=== PATIENT | male | born 1945 | race Caucasian/White ===

== ENCOUNTER 2022-06-30 14:55 | Emergency (ER) | payer MEDICARE, BC, SELFPAY ==
[2022-06-30 15:35] VITALS: BP 183/100; PULSE 76; RESP 18; TEMP 36.6; O2SAT 97; BMI 28.2
[2022-06-30 16:14] LABS: Appearance Urine Clear (Clear); Bilirubin Urine Negative (Negative); Blood Urine 2+ (Negative); Color Urine Yellow (Yellow); Glucose Urine Negative (Negative); Ketones Urine 1+ (Negative); Leukocyte Esterase Urine Negative (Negative); Nitrite Urine Negative (Negative); Protein Urine 2+ (Negative); Specific Gravity Urine 1.025 (1.000-1.030)
[2022-06-30 17:39] VITALS: BP 129/97; PULSE 89; O2SAT 95
--- NOTE | 2022-06-30 17:57 | CRLHL7_ITS ---
For Patients: As a result of the Century Cures Act, medical imaging exams and procedure reports are released immediately into your electronic medical record. You may view this report before your referring provider. If you have questions, please contact your health care provider. INDICATION: Abdominal pain. TECHNIQUE: CT abdomen and pelvis without contrast. COMPARISON: None. FINDINGS: Limited evaluation of the intra-abdominal solid organs without IV contrast. Lower chest: Mild bibasilar atelectasis. Liver: Normal in size and attenuation. No suspicious masses. Gallbladder and bile ducts: No stones or inflammation. No biliary dilatation. Pancreas: Unremarkable. No mass or inflammation. Spleen: Normal in size. No masses. Adrenal glands: Normal in size. No nodules. Kidneys: Punctate stone (2 millimeters) is identified at the distal left ureter (2/130), with proximal mild hydroureteronephrosis. There is stranding surrounding the left kidney likely related to hydronephrosis and obstruction. The right kidney is within normal limits. GI tract: Unremarkable. Normal in caliber. No sign of mass or inflammation. Normal appendix. Vasculature: Abdominal aorta is normal in caliber. Lymph nodes: No lymphadenopathy. Peritoneum/Abdominal Wall: Unremarkable. No sign of mass or infiltration. No free air or significant free fluid. Pelvis: Mild prostatomegaly. Bladder is within normal limits. Bones: Unremarkable for age. IMPRESSION: Obstructing punctate left distal ureteral stone with proximal mild hydroureteronephrosis. Please note that all CT scans at this facility use dose modulation, iterative reconstruction, and/or weight-based dosing when appropriate to reduce radiation dose to as low as reasonably achievable. Dictated by Saul Wang MD @ 06/30/2022 6:54:34 PM (Electronically Signed)
[2022-06-30 18:35] LABS: Basophils Percent Auto 0.2 % (0.0-3.0); Hematocrit 46.9 % (37.0-53.0); Hemoglobin* 15.6 gm/dL (13.5-17.5); Immature Granulocytes Abs Auto 0.02 K/uL (0.00-0.30); Lymphocytes Percent Auto 7.2 % (20-44); Mean Corpuscular HGB Conc 33 gm/dL (32-36); Mean Corpuscular Hemoglobin 29 pg (26-34); Mean Corpuscular Volume 86 fL (80-100); Monocytes Percent Auto 6.6 % (0.0-11.0); Neutrophils Percent Auto 85.8 % (42.0-72.0); Platelet Count* 255 K/uL (140-440); RDW Coefficient of Variation % 13.1 % (11.5-15.5); Red Blood Count 5.43 m/uL (4.30-5.90)
[2022-06-30 18:40] LABS: Slide Review Reflex No
--- NOTE | 2022-06-30 18:44 | ED.ABDPAIN ---
HPI - Abdominal Pain General Date Seen: 06/30/22 Chief Complaint: Abdominal Pain Stated Complaint: Abdominal pain, brown urine Time Seen by Provider: 06/30/22 17:47 Source: patient Mode of arrival: ambulatory Limitations: no limitations History of Present Illness HPI narrative: Patient is a very nice 71 for old gentleman who has a history of prostate cancer he presents here with abdominal pain on the left side of his abdomen, radiation from his flank to his left groin, he has also had some dark urination with this. He has been for the last 3-4 days, took some Excedrin, for this and felt a little bit better. Some nausea but no vomiting, no diarrhea, and appetites been a little bit off, he has had no fevers chills or sweats, denies any chest pain shortness of breath, falls or injury presents here with his . For evaluation. Related Data Home Medications Medication Instructions Recorded Confirmed levothyroxine 125 mcg tablet 125 mcg PO DAILY 06/30/22 06/30/22 Allergies Allergy/AdvReac Type Severity Reaction Status Date / Time No Known Drug Allergies Allergy Verified 06/30/22 15:45 Review of Systems Status of ROS Reports: 10 or more systems reviewed and unremarkable except as noted in History and below PFSH [facility] Social History Smoking Status: Never smoker How often do you have a drink containing alcohol: never AUDIT-C Alcohol total score: 0 Non-prescribed substance use: denies use Exam Narrative: Exam Narrative: Patient is in stayed 2 in no apparent distress his pupils equal round react to light there is no scleral icterus redness is TMs are normal his oropharynx normal there is no adenopathy anterior posterior chains his neck is supple full range of motion, carotid upstrokes are equal bilaterally JVP is flat, chest is clear bilaterally with no wheezing crackles noted heart sounds no clicks murmurs or gallops, abdominal exam reveals the some mild left-sided tenderness more in the lower quadrants, some mild CVA tenderness on the left side also, no hernias are noted normal male genitalia circumcised male, no organomegaly. Extremities are all normal, with no swelling pitting edema, no rashes, neurologically intact in the upper lower extremities. Const: Vital Signs, click to edit/add: Vital Signs - 24 hr 06/30/22 15:35 06/30/22 17:39 06/30/22 19:01 Temperature 97.8 F Pulse Rate [Right Pulse Oximeter] 76 89 77 Respiratory Rate 18 Blood Pressure [Ri ght Upper Arm] 183/100 H 129/97 H 132/90 H Pulse Oximetry 97 95 98 Oxygen Delivery Me thod Room Air Room Air Course Vital Signs Vital signs: Initial Vital Signs Temperature 97.8 F 06/30/22 15:35 Temperature Source Temporal Artery Scan 06/30/22 15:35 Pulse Rate 76 06/30/22 15:35 Respiratory Rate 18 06/30/22 15:35 Blood Pressure 183/100 H 06/30/22 15:35 Blood Pressure Mean 127 06/30/22 15:35 Blood Pressure Position Sitting 06/30/22 15:35 Pulse Oximetry 97 06/30/22 15:35 Oxygen Delivery Method 06/30/22 15:35 Vital Signs Temperature 97.8 F 06/30/22 15:35 Pulse Rate 76 06/30/22 15:35 Respiratory Rate 18 06/30/22 15:35 Blood Pressure 183/100 H 06/30/22 15:35 Pulse Oximetry 97 06/30/22 15:35 Oxygen Delivery Method 06/30/22 15:35 Temperature 97.8 F 06/30/22 15:35 Pulse Rate 77 06/30/22 19:01 Respiratory Rate 18 06/30/22 15:35 Blood Pressure 132/90 H 06/30/22 19:01 Pulse Oximetry 98 06/30/22 19:01 Oxygen Delivery Method 06/30/22 19:01 MDM - Abdominal Pain MDM Narrative Medical decision making narrative: During this evaluation of this patient I considered multiple differential diagnosis is which included the life-threatening such as appendicitis, aortic aneurysm, mesenteric ischemia, bowel perforation, volvulus, and bowel obstruction. Other differential diagnosis is include but are not limited to cholecystitis, pancreatitis, hepatitis, gastritis, GERD, diverticulitis, peptic ulcer disease, pyelonephritis/UTI, renal colic/stone, testicular torsion as well as other acute scrotal processes, inflammatory bowel disease, as well as other etiologies Medical Records Attestation: I reviewed the patient's medical records. Lab Data Attestation: I reviewed the patient's lab results. Labs: Lab Results 06/30/22 06/30/22 06/30/22 Range/Units 15:50 18:06 18:06 WBC 11.20 H (4.50-11.00) K/uL RBC 5.43 (4.30-5.90) m/uL Hgb 15.6 (13.5-17.5) gm/dL Hct 46.9 (37.0-53.0) % MCV 86 (80-100) fL MCH 29 (26-34) pg MCHC 33 (32-36) gm/dL RDW Coeff of Zeus 13.1 (11.5-15.5) % Plt Count 255 (140-440) K/uL Neut % (Auto) 85.8 H (42.0-72.0) % Lymph % (Auto) 7.2 L (20-44) % Harrison % (Auto) 6.6 (0.0-11.0) % Eos % (Auto) 0.0 (0.0-7.0) % Baso % (Auto) 0.2 (0.0-3.0) % Neut # (Auto) 9.60 H (1.7-7.0) K/uL Lymph # (Auto) 0.80 L (0.90-2.90) K/uL Harrison # (Auto) 0.70 (0.00-0.90) K/UL Eos # (Auto) 0.00 (0.00-0.50) K/uL Baso # (Auto) 0.00 (0.00-0.30) K/uL Abs Immat Gran (auto) 0.02 (0.00-0.30) K/uL Sodium 134 L (135-149) mmol/L Potassium 4.5 (3.6-5.1) mmol/L Chloride 101 (96-114) mmol/L Carbon Dioxide 24 (20-32) mmol/L BUN 22 (7-30) mg/dL Creatinine 1.6 H (0.5-1.5) mg/dL Estimated Creat Clear 46.38 Estimated GFR 45 ml/min Glucose 137 H (60-115) mg/dL Calcium 8.8 (8.4-10.6) mg/dL Total Bilirubin 0.7 (0.1-1.5) mg/dL Direct Bilirubin 0.1 (0.0-0.5) mg/dL AST 33 (12-35) U/L ALT 26 (4-50) U/L Alkaline Phosphatase 69 (40-150) U/L C-Reactive Protein 2.5 H (0.5-1.0) mg/dL Total Protein 7.5 (6.0-8.3) g/dL Albumin 4.6 (3.3-5.0) g/dL Lipase 60 (23-300) U/L Urine Color Yellow (Yellow) Urine Appearance Clear (Clear) Urine pH 6.0 (5.0-8.5) Ur Specific Mittie 1.025 (1.000-1.030) Urine Protein 2+ A (Negative) Urine Glucose (UA) Negative (Negative) Urine Ketones 1+ A (Negative) Urine Blood 2+ A (Negative) Urine Nitrite Negative (Negative) Urine Bilirubin Negative (Negative) Urine Urobilinogen 1.0 (0.2-1.0) Ur Leukocyte Esterase Negative (Negative) Urine RBC 2-5 A (0-2) Urine WBC 2-5 (0-5) Ur Squamous Epith Cells None (None-Few) Urine Bacteria None (None) Imaging Data CT scan - abdomen: Attestation: I have reviewed the pertinent imaging results. My impression: Small stone with mild hydronephrosis on the left side. This stone is at the distal UVJ. Radiologist's impression: Patient: TAYLOR SAMEER Facility:?[facility] Patient ID:?[id number] Site Patient ID:?[id number]. Site :?1945 Study:?CT Abdomen/Pelvis W/O-06/30/2022 6:35:16 PM Ordering Physician:Jensen Harrison Final Report: INDICATION: Abdominal pain. TECHNIQUE: CT abdomen and pelvis without contrast. COMPARISON: None. FINDINGS: Limited evaluation of the intra-abdominal solid organs without IV contrast. Lower chest: Mild bibasilar atelectasis. Liver: Normal in size and attenuation. No suspicious masses. Gallbladder and bile ducts: No stones or inflammation. No biliary dilatation. Pancreas: Unremarkable. No mass or inflammation. Spleen: Normal in size. No masses. Adrenal glands: Normal in size. No nodules. Kidneys: Punctate stone (2 millimeters) is identified at the distal left ureter (2/130), with proximal mild hydroureteronephrosis. There is stranding surrounding the left kidney likely related to hydronephrosis and obstruction. The right kidney is within normal limits. GI tract: Unremarkable. Normal in caliber. No sign of mass or inflammation. Normal appendix. Vasculature: Abdominal aorta is normal in caliber. Lymph nodes: No lymphadenopathy. Peritoneum/Abdominal Wall: Unremarkable. No sign of mass or infiltration. No free air or significant free fluid. Pelvis: Mild prostatomegaly. Bladder is within normal limits. Bones: Unremarkable for age. IMPRESSION: Obstructing punctate left distal ureteral stone with proximal mild hydroureteronephrosis. Please note that all CT scans at this facility use dose modulation, iterative reconstruction, and/or weight-based dosing when appropriate to reduce radiation dose to as low as reasonably achievable. Dictated by Saul Wang MD @ 06/30/2022 6:54:34 PM (Electronic Signature) Discharge Plan Discharge Clinical Impression: Urolithiasis Patient Disposition: Home w/ Parent or Adult Condition: Improved Instructions: Renal Colic (ED) Additional Instructions: Home rest use of Tylenol 650 mg p.o. t.i.d., return here if increasing pain nausea vomiting fevers chills or other signs, the kidney stone is small and you should pass this with no problems at all. Avoidance of ibuprofen, Aleve or lows going to medications is strongly suggested given your history of chronic kidney disease. Prescriptions: No Action levothyroxine 125 mcg tablet 125 mcg PO DAILY Follow Up/Referrals: ROB RAMOS DO [Primary Care Provider] - Stand Alone Forms: [employer] Info Instructions
--- OUTSIDE RECORDS SUMMARY | 2022-06-30 18:48 | XMS_ITS ---
:1945 Author Care Team Providers Name Role Phone HenryErnst Primary Care Provider Unavailable Allergies Code Code System Name Reaction Severity Status Onset NKDA ? Medications Name Status Start Date Stop Date ? ? amoxicillin 500 mg capsule Completed ? 08/14 ceftriaxone 1 gram solution for injection Completed ? 08/14/2021 Take 1 g by injection route. ROSS Sky Cipro 500 mg tablet Completed ? 08/14/2021 Take 1 tablet every 12 hours by oral route for 4 days. start the day before procedure doxycycline monohydrate 100 mg capsule Completed ? 08/14/2021 ID NOW COVID-19 Test Kit Completed ? 021 TEST DIRECTED TODAY levothyroxine 125 mcg tablet Active ? Not available Multi Vitamin Active ? Not available mupirocin 2 % topical ointment Completed ? 1 APPLY TO HEALING SITE ON ARM 1-2X DAILY UNTIL IMPROVED tamsulosin 0.4 mg capsule Completed ? 2020 Problems No Known Problems Procedures Date Name Performed by ? 12/25/2016 Colonoscopy Information not avai lable Notes: pt estimated date ? Thyroidectomy Information not avai lable 07/31/2021 MRI, Prostate, W/wo Contrast [facility] (Radiology) [address] [place], [place] [address] (Work Place) 06/23/2022 MRI, Prostate, W/wo Contrast [facility] [address] [place] [address] (Work Place) Results Lab Results Date Name Specimen Result Interpretation Description Value Range Status Address ? 06/24/2022 PSA, Serum or ? No observation ? ? ? Plasma recorded. 02/25/2022 PSA, Total, ? No observation ? ? ? Serum or recorded. Plasma 01/17/2022 PSA, Total, ? No observation ? ? ? [employer] Serum or recorded. Labor atory: [address], [place] 12/25/2021 PSA, Serum or ? PSA, Total 7.8 ? ? Plasma ng/ml 12/25/2021 PSA, Serum or ? No observation ? ? ? Plasma recorded. Past Encounters 06/23/2022 Carcinoma of Prostate; Ryan Reid MD: [address], [place] [address], Ph. 12/25/2021 Carcinoma of Prostate; Ryan Reid MD: [address], [place] [address], Ph. 08/14/2021 Carcinoma of Prostate; Ryan Reid MD: [address], [place] [address], Ph. 07/24/2021 Raised Prostate Specific Antigen; Doc Reid MD: [address], [place] [address], Ph. Social History Tobacco Smoking Status Never Smoker Vaccine List Vaccine Type COVID-19, mRNA, LNP-S, PF, 100 mcg/0.5 m L dose (Moderna) 11/02/2020 11/30/2020 08/01/2021 Hep A-Hep B 07/09/2011 02/23/2012 Influenza vaccine, quadrivalent, adjuvan rafaela 06/05/2020 06/24/2021 influenza, high dose seasonal 08/21/2014 06/19/2016 influenza, seasonal, injectable 06/21/2007 08/23/2008 08/08/2013 influenza, seasonal, injectable, preserv ative free 07/09/2011 influenza, trivalent, adjuvanted 09/08/2017 07/13/2018 06/28/2019 pneumococcal conjugate PCV 13 08/21/2014 pneumococcal polysaccharide PPV23 02/23/2012 Td (adult) preservative free 06/21/2007 Tdap 07/09/2011 zoster recombinant 06/23/2020 08/31/2020 Plan of Care Reminders Provider Appointments None recorded. ? ? Lab None recorded. ? ? Referral None recorded. ? ? Procedures None recorded. ? ? Surgeries None recorded. ? ? Imaging None recorded. ? ? Vitals 06/23/2022 09:50AM ESTABLISHED 10 Height Weight BMI 6 ft 3 in 220 lbs 27.5 kg/m2 12/25/2021 03:20PM ESTABLISHED 10 Height Weight BMI 6 ft 3 in 220 lbs 27.5 kg/m2 08/14/2021 04:00PM CA TALK Height Weight BMI 6 ft 3 in 220 lbs 27.5 kg/m2
--- OUTSIDE RECORDS SUMMARY | 2022-06-30 18:48 | XMS_ITS | Encounter Summary ---
:1945 Author Organization [facility] Address [address] [place] [address] Care Team Providers Name Role Phone Vivien Knox Primary Care Provider Unavailable Encounter Details Date Type Department Care Team Description 03/14/2022 Office Communication [facility] [place] [address] [facility] [address] [place] [phone] Social History Tobacco Use Types Packs/Day Years Used Date Smoking Tobacco: Never Smokeless Tobacco: Never Alcohol Use Standard Drinks/Week Comments Yes 0 (1 standard drink = 0.6 oz pure alcoho l) rarely Alcohol Habits Answer Date Recorded How often do you have a drink containing alcohol? Not asked How many drinks containing alcohol do you have on a typical Not asked day when you are drinking? How often do you have six or more drinks on one occasion? No t asked Comment: rarely 01/15/2022 Sex Assigned at Date Recorded Not on file documented as of this encounter Miscellaneous Notes Telephone Encounter - Lucrecia Contreras - 03/14/2022 10:10 AM CDT Patient showed up on 03/14/2022. He was already seen as new patient on 01/15/2022. Advised he does not have to be seen until next year and changed recall to F/U. Lucrecia Contreras documented in this encounter Plan of Treatment Not on filedocumented as of this encounter Visit Diagnoses Not on filedocumented in this encounter Care Teams Scrubber Machine Tender Relationship Specialty Start Date End Date Vivien Knox DO PCP - General Family Medicine 01/08/22 [address] [place] [address] documented as of this encounter
--- OUTSIDE RECORDS SUMMARY | 2022-06-30 18:48 | XMS_ITS | Encounter Summary ---
:1945 Author Organization [facility] Address [address] [place] [address] Care Team Providers Name Role Phone Vivien Knox Primary Care Provider Unavailable Encounter Details Date Type Department Care Team Description 01/22/2022 Orders Only [facility] Lutz MD Stage 3a chronic [place] [address] kidney disease (HCC) [address] [place] [phone] Social History Tobacco Use Types Packs/Day Years [...] Assigned at Date Recorded Not on file COVID-19 Exposure Response Date Recorded In the last month, have you been in contact with No / Unsure 01/15/2022 12:58 PM EDT someone who was confirmed or suspected to have Coronavirus / COVID-19? documented as of this encounter Progress Notes Harsh Lutz MD - 01/22/2022 11:59 PM CDT Please call the patient regarding U/S. Normal, no concerns JPG documented in this encounter Plan of Treatment Not on filedocumented as of this encounter Procedures Procedure Name Priority Date/Time Associated Diagnosis Comme nts US RENAL COMPLETE Routine 01/31/2022 10:16 AM Stage 3a chronic Results for this CDT kidney disease (HCC) procedu re are in the results section. documented in this encounter Results Ultrasound renal complete (01/31/2022 10:16 AM CDT) Anatomical Region Laterality Modality Body Ultrasound Narrative This result has an attachment that is no t available. Harsh Lutz MD IMG US PROCEDURES documented in this encounter Visit Diagnoses Diagnosis Stage 3a chronic kidney disease (HCC) documented in this encounter Care Teams Business Process Engineer Relationship Specialty Start Date End Date Vivien Knox DO PCP - General Family Medicine 01/08/22 [address] [place] [address] documented as of this encounter
--- OUTSIDE RECORDS SUMMARY | 2022-06-30 18:48 | XMS_ITS | Encounter Summary ---
:1945 Author Organization [facility] Address [address] [place] [address] Care Team Providers Name Role Phone Vivien Knox DO Primary Care Provider Unavailable Reason for Referral Imaging (Routine) - Closed Specialty Diagnoses / Procedures Referred By Contact Refer red To Contact Diagnoses Stage 3a chronic kidney disease (HCC) Harsh Lutz MD Location Not In System Procedures Ultrasound renal complete [address] [place] [address] Referral ID Status Reason Start Date Expiration Date Visits Requ ested Visits Authorized [id number] Closed 01/15/2022 01/15/2023 1 1 Reason for Visit Reason Comments CKD New Patient Consultation (Routine) - Closed Specialty Diagnoses / Procedures Referred By Contact Refer red To Contact Nephrology Diagnoses Stage 3a chronic kidney disease (HCC) Vivien Knox DO [facility] [address] [place] [address] [address] [place] [address] Phone: Fax: Referral ID Status Reason Start Date Expiration Date Visits V isits Requested Authorized [id number] Closed Consult and 01/02/2022 01/02/2023 1 1 Treat Encounter Details Date Type Department Care Team Description 01/15/2022 [facility] Visit [facility] MD Stage 3a chronic [place] [address] kidney disease (HCC) [address] (Primary Dx) [address] [place] [id number] Social History Tobacco Use Types Packs/Day Years [...] / COVID-19? documented as of this encounter Last Filed Vital Signs Vital Sign Reading Time Taken Comments Blood Pressure 122/78 01/15/2022 1:20 PM CDT Pulse 83 01/15/2022 1:20 PM CDT Temperature - - Respiratory Rate - - Oxygen Saturation - - Inhaled Oxygen Concentration - - Weight 102 kg (224 lb) 01/15/2022 1:20 PM CDT Height 189.2 cm (6' 2.5) 01/15/2022 1:20 PM CDT Body Mass Index 28.38 01/15/2022 1:20 PM CDT documented in this encounter Patient Instructions Patient InstructionsKayli Lewis - 01/15/2022 1:52 PM CDT Renal U/S at [facility] or [facility]. We will contact you with a date, time and location for this. Fasting labs and urine at [facility] this week or next week. Orders will be faxed. No new meds. Follow up in 1 year, with labs done 1 week prior. We will contact you to schedule this visit. Welcome to [facility] Although we are experts in the care of patients with chronic kidney disease, we understand that you are the expert regarding your own life. Our goal is to work with you in providing the best possible care and to meet your individual needs. The six important things that we check to ensure that you are staying healthy: ? Blood Pressure: Our goal is to keep your blood pressure 130/80 or lower. ? Heart and blood vessels: We want your LDL (bad cholesterol) to be below 100. If you smoke, it is important to quit. ? Anemia: We want your hemoglobin to be around 10 to 12. ? Bones: We want the calcium to be between 8.5 and 10, the phosphorous to be between 3.5 and 4.5. ? We want you to maintain good nutrition to keep your body healthy. The renal nuclear fuel enrichment technician is available to help you with this. ? If you have diabetes, we want to keep your hemoglobin A1c at 7.0 or lower and your blood sugar 80 to 130. Additionally, do not take any zgoj-kfc-kdkbgrg medications or prescribed medication without asking if it can hurt your kidneys. Avoid Motrin, Aleve, ibuprofen, or naprosyn arthritis nmbb-azm-dqflnhj medications. Avoid cold medications that include ephedrine, phenylpropolamine or pseudoephedrine (Suda fed, Actifed). If your doctor wants you to have a CT scan or MRI with IV contrast, be sure to let them know that you see a continuing education director for your kidney disease. Ask that they contact your continuing education director before this type of test is scheduled. When to call for your kidneys if you get sick: ? If you get dehydrated (you may need to come in for fluids and stop some medications) ? If you cannot pass your urine completely (empty your bladder) Our doctors, nurses, and dieticians are eager to help you in any way that we can. We want you to feel free to call us or make an appointment anytime you have questions or concerns. To call the nurse [facility] continuing education director's office, please see the addresses and telephone numbers listed on the left. Thank you, The Physicians and staff at [facility] UNDERSTANDING YOUR BLOOD PRESSURE & LAB RESULTS People who develop chronic kidney disease may have some or all of the following tests. This sheet isto help you understand the results: Blood Pressure: Achieving the blood pressure goals identified by your kidney doctor is very important in slowing the progression of your kidney disease. Always take blood pressure medications as directed. Other steps to follow may include cutting down on the amount of salt in your diet, losing excess weight and following a regular exercise program. Serum Creatinine: Creatinine is a waste product in your blood that comes from muscle activity. It isnormally removed from your blood by your kidneys, but when kidney function slows down, the creatinine level rises. (Lab Normal Range: Male: 0.5--1.3, Female: 0.4--1.1) BUN (Blood Urea Nitrogen): BUN is a waste product in your blood that is normally removed from your body by the kidneys. When your kidney function slows down or if you become dehydrated, the BUN levels rise. (Lab Normal Range: 7--24) Glomerular Filtration Rate (GFR): Your GFR tells how much kidney function you have. It is calculatedfrom your blood level of creatinine. (Lab Normal Range: Equal to or greater than 60) Potassium: Potassium is a mineral in your blood that helps your heart and muscles work properly, toomuch or too little potassium can be harmful to your heart and other muscles in your body. Potassium levels can be controlled by careful dietary restrictions. Our dietitian can help plan your diet to get the right amount of potassium. (Lab Normal Range: 3.5--5.1) Phosphorus: Failing kidneys do not remove phosphorus efficiently. A high phosphorus level can lead to weak bones. If your level is too high, your kidney doctor may ask you to reduce your intake of foods that are high in phosphorus and take medications called phosphate binders with your meals and snacks. (Lab Normal Range: 2.5--4.9) Calcium: Calcium is a mineral that is important for strong bones. To help balance the amount of calcium in your blood, your kidney doctor may ask you to take calcium supplements and Vitamin D. Take only the supplements and medications recommended by your kidney doctor. (Lab Normal Range: 8.5--10.1) Page 2 of 2 Parathyroid Hormone (PTH): This hormone is a marker for your bone health. High levels may result from a poor balance of calcium and phosphorus in your body that can cause bone disease. Your kidney doctor may order a special prescription form of Vitamin D to help lower your PTH. (Lab Normal Range: 14--72) Hemoglobin: Hemoglobin is the part of red blood cells that carries oxygen from your lungs to all parts of your body. A low hemoglobin level indicates too few red blood cells, which is called anemia. Anemia can make you feel tired or have a low energy level. If you have anemia, you may need treatment with iron supplements and a hormone called erythropoietin (EPO). Your hemoglobin is monitored carefully to ensure the correct doses of iron and EPO is prescribed. (Lab Normal Range: Males: 14-18, Females: 12-16) TSAT and Serum Ferritin: Your TSAT (% iron saturation) and serum ferritin are measures of iron in your body. Abnormal values may indicate iron deficiency. Your kidney doctor may recommend iron supplements when needed. (Lab Normal Range: TSAT: 15--50; Serum Ferritin: 8--388) Cholesterol tests: Patients with kidney disease have an increased risk for cardiovascular disease (heart disease), therefore it is important that your cholesterol is well controlled. Dietary changes, exercise, and cholesterol lowering medication can lower cholesterol levels and decrease cardiovascular risk. Total Cholesterol: Cholesterol is a fat-like substance found in your blood. A high cholesterol levelmay increase your chance of having heart and circulation problems. For many patients, the target level is less than 200. HDL Cholesterol: HDL is a type of 'good' cholesterol that protects your heart. For many patients, the target level for HDL is above 40. LDL Cholesterol: LDL is a type of 'bad' cholesterol. A high LDL level may increase your chance of having heart and circulation problems. For many patients, a good level for LDL cholesterol is below 100, but some patients may have an even lower goal. Triglyceride: Triglyceride is a type of fat found in your body. A high triglyceride level along withhigh levels of total and LDL cholesterol may increase your chance of heart and circulation problems.For many patients, the target level is less than 150. HgbA1c: The HgbA1c is a marker of diabetes control for the past two to three months. Adequate diabetes control has been proven to slow the progression of kidney failure. (Lab Normal Range: Less than or equal to 5.6 if average glucose is less than or equal to 114.) documented in this encounter Progress Notes Harsh Lutz MD - 01/15/2022 1:20 PM CDT Images from the original note were not included. Patient: Elizabeth Brewster Date of : 1945, 76 y.o. male Chart: [id number] PCP: Vivien Knox DO Date of Service: 01/15/2022 Chief Complaint: I was asked by Vivien Knox to evaluate Elizabeth Brewster for CKD. History of Present Illness: Jamison is a pleasant 76-year-old male who was kindly sent to me by Dr. Lopes for evaluation of abnormal creatinine. He had a creatinine of 1.41 on June 22, 2020 and most recently 1.42 on 12/09/2021. He had a urinalysis 04/20/2020 that was bland and without any protein or white blood cells or red blood cells. He has not had any renal imaging, yet. He denies ever having kidney stones. No history of urinary tract infections or BPH symptoms althoughhe recently was placed on Flomax due to his history of prostate cancer although he has not started taking this. He has stable nocturia 1 time per night. There is no family history of CKD. He does not use lgkl-lmd-yvyfsan nonsteroidal anti-inflammatory drugs. He denies hypertension and his blood pressure today is 122/78. He was diagnosed with prostate cancer in July 2021 and is followed by Dr. Reid. Currently theyare observing his PSA and no plans for treatment. Today he feels well and has no current illnesses. Assessment & Plan 1. Stage IIIa chronic kidney disease. We will be performing a full work-up to include renal ultrasound, urinalysis, urine protein creatinine evaluation. His GFR has essentially been unchanged for the last 18 months. He is a large/tall male with increased muscle so his true GFR may be better than the estimated GFR. Long-term goals include blood pressure control to less than 130/80, LDL less than 100, avoidance of chronic NSAIDs. He should have at least annual urinalysis basic metabolic panel. 2. Cardiovascular. Current normal blood pressure on no medications. I encouraged him to follow a low-sodium diet, purchase an Omron blood pressure cuff and check his blood pressures routinely and call if the goal above our goal of 130s over 80s. 3. Bone health. Check intact PTH 25-hydroxy vitamin D calcium and phosphorus since he does have stage III chronic kidney disease. 4. Lipid status. I have ordered a fasting lipid panel and he should be considered for statin therapyif he is above the target. Defer to his primary care physician. Return in about 1 year (around 01/15/2023) for Recheck. Harsh Lutz MD [facility], Active Problems Patient Active Problem List Diagnosis Date Noted ??? Mixed hyperlipidemia 02/23/2012 Review of Systems Comprehensive ROS was negative other than above and in HPI. Physical Exam Vitals: 01/15/22 1320 BP: 122/78 BP Location: Left upper arm Pulse: 83 Weight: 224 lb (102 kg) Height: 6' 2.5 (1.892 m) CONSTITUTIONAL: calm and comfortable. NAD EYES: pupils equal, sclerae not icteric, lids and conjunctivae normal. MOUTH: Oropharynx has moist mucus membranes, good dentition, no lesions. HEMATOLOGIC/LYMPHATIC: No cervical or axillary lymphadenopathy. no bruising. RESPIRATORY: Clear to auscultation bilaterally with no respiratory distress, normal effort. CARDIOVASCULAR: Regular rate and rhythm, no murmurs. no leg edema.. no carotid or abdominal bruits. GASTROINTESTINAL: Bowel sounds +, no masses or hepatosplenomegaly. Soft, nontender, no guarding. PSYCHIATRIC: Alert and oriented x 3, not depressed. NEUROLOGIC: Cranial nerves II-XII intact, sensation to light touch intact. MUSCULOSKELETAL: Four extremities with good range of motion, no contractures. SKIN: No rash or nodules. Outpatient Medications Marked as Taking for the 01/15/22 encounter (Office Visit) with Harsh Lutz MD Medication Sig Dispense Refill ??? ascorbic acid (VITAMIN C) 1000 MG tablet Take 1 tablet by mouth 1 (one) time each day ??? cholecalciferol (VITAMIN D-3) 25 MCG (1000 UT) capsule Take 1 capsule by mouth 1 (one) time eachday ??? coenzyme Q-10 100 MG capsule Take 1 capsule by mouth 1 (one) time each day ??? fish oil-omega-3 fatty acids 1000 MG capsule Take 1 capsule by mouth in the morning and 1 capsule in the evening. ??? levothyroxine (SYNTHROID, LEVOTHROID) 125 MCG tablet Take 1 tablet by mouth 1 (one) time each day ??? Melatonin 5 MG chewable tablet Chew 1 tablet if needed ??? Multiple Vitamin (MULTIVITAMIN ADULT PO) Take 1 tablet by mouth 1 (one) time each day with food ??? Probiotic Product (PROBIOTIC BLEND PO) Take 1 capsule by mouth 1 (one) time each day ??? Red Yeast Rice Extract 600 MG tablet Take 2 tablets by mouth 1 (one) time each day ??? Saw [place] 450 MG capsule Take 1 capsule by mouth 1 (one) time each day ??? sildenafil (VIAGRA) 50 MG tablet Take 50 mg by mouth if needed ??? Turmeric 500 MG tablet Take 1 capsule by mouth 1 (one) time each day Medication orders: No orders of the defined types were placed in this encounter. Orders Placed This Encounter Procedures ??? Ultrasound renal complete Standing Status: Future Standing Expiration Date: 01/15/2023 Scheduling Instructions: At either [facility] or [facility] ??? Basic Metabolic Panel (BMP) This order was created through External Result Entry ??? Urinalysis This order was created through External Result Entry ??? Basic Metabolic Panel (BMP) This order was created through External Result Entry ??? Basic Metabolic Panel (BMP) This order was created through External Result Entry ??? Renal Function Panel Fasting labs at [facility] Standing Status: Future Standing Expiration Date: 02/15/2023 Order Specific Question: [facility] Has the patient fasted? Answer: No ??? Hemoglobin Fasting labs at [facility] Standing Status: Future Standing Expiration Date: 02/15/2023 ??? PTH, Intact Fasting labs at [facility] Standing Status: Future Standing Expiration Date: 02/15/2023 ??? Protein, Total, Random Urine w/Creatinine (Protein/Creat Ratio) Fasting labs at [facility] Standing Status: Future Standing Expiration Date: 02/15/2023 ??? Urinalysis with microscopic Fasting labs at [facility] Standing Status: Future Standing Expiration Date: 02/15/2023 Order Specific Question: Microscopic Required Answer: No Order Specific Question: Culture if Indicated? Answer: No ??? Vitamin D 25 Hydroxy Fasting labs at [facility] Standing Status: Future Standing Expiration Date: 02/15/2023 ??? Lipid panel Fasting labs at [facility] Standing Status: Future Standing Expiration Date: 02/15/2023 Order Specific Question: Fasting? Answer: Yes ??? CBC (Includes Diff/Plt) (External Lab) This order was created through External Result Entry No Known Allergies CBC and Iron Studies Lab Units 12/09/21 0000 WBC AUTO K/uL 5.2 HEMATOCRIT % 48.9 HEMOGLOBIN g/dL 16.4 MCV 87 PLATELETS AUTO 223 Urine Lab Units 04/20/20 0000 URINE SPECIFIC GRAVITY 1.025 GLUCOSE UR Negative BLOOD, URINE Negative LEUKOCYTE ESTERASE UA (EXTERNAL LAB ENTRY) Negative NITRITE U Negative PROTEIN UR Negative BILIRUBIN U Negative UROBILINOGEN U Normal I have performed a complete review of pertinent lab results 01/15/2022 The following portions of the patient's chart were reviewed in this encounter and updated as appropriate: Tobacco Allergies Meds Med Hx Surg Hx Fam Hx Past Medical History: Diagnosis Date ??? Other malignant neoplasm of unspecified site (HCC) Past Surgical History: Procedure Laterality Date ??? THYROID SURGERY Social History Tobacco Use ??? Smoking status: Never Smoker ??? Smokeless tobacco: Never Used Substance Use Topics ??? Alcohol use: Yes Comment: rarely ??? Drug use: Never Family History Problem Relation Age of Onset ??? Heart disease Mother ??? Heart disease Father documented in this encounter Plan of Treatment Not on filedocumented as of this encounter Procedures Procedure Name Priority Date/Time Associated Diagnosis Comme nts BASIC METABOLIC PANEL Routine 12/09/2021 Result s for this (BMP) (EXTERNAL LAB procedur e are in the ENTRY) results section . CBC (INCLUDES DIFF/PLT) Routine 12/09/2021 Resu lts for this (EXTERNAL LAB ENTRY) procedu re are in the results section . BASIC METABOLIC PANEL Routine 06/22/2020 Result s for this (BMP) (EXTERNAL LAB procedur e are in the ENTRY) results section . URINALYSIS (EXT LAB Routine 04/20/2020 Results for this ENTRY) procedure are i n the results section . BASIC METABOLIC PANEL Routine 06/21/2007 Result s for this (BMP) (EXTERNAL LAB procedur e are in the ENTRY) results section . documented in this encounter Results Ultrasound renal complete (01/31/2022 10:16 AM CDT) Anatomical Region Laterality Modality Body Ultrasound Narrative This result has an attachment that is no t available. Harsh Lutz MD IMG US PROCEDURES (ABNORMAL) [facility]/17/2022[facility] Signature Cholesterol, Total 207 (H) [facility] Triglycerides 96 [facility] HDL 42 mg/dL [facility] LDL-Calculated 146 (H) [facility] Comment: LDL Cholesterol. Non HDL Cholesterol 165 (H) [facility] Chol/HDL Ratio (External Entry) 4.93 (H) [facility] Specimen (Source) Anatomical Location Collection Method / Collectio n Time Received Time / Laterality Volume Blood (Blood, 01/17/2022 Venous) Harsh Lutz MD LAB BLOOD ORDERABLES Performing Organization Address [place] Code Phon e Number [facility] (ABNORMAL) Vitamin D 25 Hydroxy (01/17/2022) athologist Signature Vitamin D, 28.8 (L) ng/mL [facility] 25-OH, Total Specimen (Source) Anatomical Location Collection Method / Collectio n Time Received Time / Laterality Volume Blood (Blood, 01/17/2022 Venous) Harsh Lutz MD LAB BLOOD ORDERABLES Performing Organization Address [place] Code Phon e Number [facility] Urinalysis with microscopic (01/17/2022) athologist Signature Color, Urine Yellow [facility] Clarity, Urine Clear [facility] Urine Specific 1.025 [facility] [place] pH Urine 5.5 [facility] Leukocyte Negative [facility] Esterase UA Nitrite, Urine Negative [facility] Protein, Urine Negative [facility] Glucose, Urine Negative [facility] Ketones, Urine Negative [facility] Urobilinogen, Normal [facility] Urine Bilirubin, Negative [facility] Urine Blood, Urine Negative [facility] Specimen (Source) Anatomical Location Collection Method / Collectio n Time Received Time / Laterality Volume Urine (Urine, 01/17/2022 Clean Catch) Harsh Lutz MD LAB URINE ORDERABLES Performing Organization Address [place] [facility] [place]on [place] Number [facility] Protein, Total, Random Urine w/Creatinine (Protein/Creat Ratio) (01/17/2022) athologist Signature Creatinine, 189.9 mg/dL [facility] Urine Random Urine 0.1 mg/g creat [facility] Protein/Creatin ine Ratio Protein Urine 12 [facility] Random Specimen (Source) Anatomical Location Collection Method / Collectio n Time Received Time / Laterality Volume Urine (Urine, 01/17/2022 Clean Catch) Harsh Lutz MD LAB URINE ORDERABLES Performing Organization Address [facility] Phon e Number [facility] PTH, Intact (01/17/2022) athologist Signature Parathyroid 52.4 pg/mL [facility] Hormone, Intact Specimen (Source) Anatomical Location Collection Method / Collectio n Time Received Time / Laterality Volume Blood (Blood, 01/17/2022 Venous) Harsh Lutz MD LAB BLOOD ORDERABLES Performing Organization Address [place] Phon e Number [facility] Hemoglobin (01/17/2022) athologist Signature Hemoglobin 16.1 g/dL [facility] Specimen (Source) Anatomical Location Collection Method / Collectio n Time Received Time / Laterality Volume Blood (Blood, 01/17/2022 Venous) Harsh Lutz MD LAB BLOOD ORDERABLES Performing Organization Address [place] Code Phon e Number [facility] (ABNORMAL) Renal Function Panel (01/17/2022) Analysis Performed At Patho logist Time Signature Glucose 97 mg/dL [facility] BUN 19 mg/dL [facility] Creatinine 1.41 (H) mg/dL [facility] BUN/Creatinine 13 [facility] Ratio Sodium 142 mEq/L [facility] Potassium 4.8 mEq/L [facility] Chloride 105 [facility] Carbon Dioxide 27 mmol/L [facility] Calcium 9.0 mg/dL [facility] Phosphorus, 4.0 mg/dL [facility] Serum Albumin (Blood) 4.2 g/dL [facility] eGFR 52 (L) [facility] Specimen (Source) Anatomical Location Collection Method / Collectio n Time Received Time / Laterality Volume Blood (Blood, 01/17/2022 Venous) Harsh Lutz MD LAB BLOOD ORDERABLES Performing Organization Address [place] [facility] Phon e Number [facility] (ABNORMAL) Basic Metabolic Panel (BMP) (12/09/2021) Analysis Performed At [facility] Time Signature Sodium 139 mEq/L Potassium 4.7 mEq/L Chloride 103 Carbon Dioxide 29 mmol/L Calcium 9.3 mg/dL BUN 17 mg/dL Creatinine 1.42 (H) mg/dL Glucose 96 mg/dL Anion Gap 7 eGFR 52 (L) Specimen (Source) Anatomical Location Collection Method / Collectio n Time Received Time / Laterality Volume 12/09/2021 Historical Provider LAB BLOOD ORDERABLES CBC (Includes Diff/Plt) (External Lab) (12/09/2021) athologist Signature WBC 5.2 K/uL Red Blood Cell 5.62 Count Hemoglobin 16.4 g/dL Hematocrit 48.9 % MCV 87 MCH 29.2 MCHC 33.5 RDW 14.9 Platelet Count 223 MPV 9.8 Absolute 2.7 Neutrophils Absolute 1.8 Lymphocytes Absolute 0.5 Monocytes Absolute 0.1 Eosinophils Absolute 0.0 Basophils Neutrophils 52.9 K/uL Lymphocytes 34.7 Monocytes 9.7 Eosinophils 2.3 Basophils 0.4 Specimen (Source) Anatomical Location Collection Method / Collectio n Time Received Time / Laterality Volume Blood 12/09/2021 Historical Provider LAB BLOOD ORDERABLES (ABNORMAL) Basic Metabolic Panel (BMP) (06/22/2020) Analysis Performed At [facility] Signature Sodium 140 mEq/L Potassium 4.6 mEq/L Chloride 105 Carbon Dioxide 27 mmol/L Calcium 94 mg/dL BUN 18 mg/dL Creatinine 1.41 (H) mg/dL Glucose 94 mg/dL eGFR Non-Afr 49 (L) [place] eGFR 60 (L) [place] Anion Gap 8 Specimen (Source) Anatomical Location Collection Method / Collectio n Time Received Time / Laterality Volume 06/22/2020 Historical Provider MD LAB BLOOD ORDERABLES Urinalysis (04/20/2020) athologist Signature Color, Urine Yellow Clarity, Urine Clear Urine Specific 1.025 [place] pH Urine 5.5 Leukocyte Negative Esterase UA Nitrite, Urine Negative Protein, Urine Negative Glucose, Urine Negative Ketones, Urine Negative Urobilinogen, Normal Urine Bilirubin, Negative Urine Blood, Urine Negative Specimen (Source) Anatomical Location Collection Method / Collectio n Time Received Time / Laterality Volume Urine 04/20/2020 Historical Provider LAB URINE ORDERABLES (ABNORMAL) Basic Metabolic Panel (BMP) (06/21/2007) P athologist Signature Sodium 138 mEq/L Potassium 4.6 mEq/L Chloride 103 Carbon Dioxide 28 mmol/L Calcium 9.8 mg/dL BUN 16 mg/dL Creatinine 1.4 (H) mg/dL Glucose 107 (H) mg/dL Anion Gap 7 Specimen (Source) Anatomical Location Collection Method / Collectio n Time Received Time / Laterality Volume 06/21/2007 Historical Provider LAB BLOOD ORDERABLES documented in this encounter Visit Diagnoses Diagnosis Stage 3a chronic kidney disease (HCC) - Primary documented in this encounter Care Teams Adjunct Phlebotomy Instructor Relationship Specialty Start Date End Date Vivien Knox DO PCP - General Family Medicine 01/08/22 [address] [place] [address] documented as of this encounter
--- OUTSIDE RECORDS SUMMARY | 2022-06-30 18:48 | XMS_ITS | Encounter Summary ---
:1945 Author Organization [facility] Address [address] [place] [address] Care Team Providers Name Role Phone Vivien Knox DO Primary Care Provider Unavailable Encounter Details Date Type Department Care Team Description 01/23/2022 Telephone [facility] Corinne Martinez RN [address] [place], [place] [phone] [facility] [address] [place] [address] (Wo rk) Social History Tobacco Use Types Packs/Day Years [...] / COVID-19? documented as of this encounter Miscellaneous Notes Telephone Encounter - Corinne Roberts RN - 01/24/2022 12:18 PM CDT Pt notified and voiced understanding. Telephone Encounter - Corinne Roberts RN - 01/24/2022 11:56 AM CDT Left a voicemail for patient to call the office back. Telephone Encounter - Corinne Roberts RN - 01/23/2022 3:18 PM CDT ----- Message from Harsh Lutz MD sent at 01/23/2022 3:03 PM CDT ----- Please call the patient regarding labs. His Vit D is a little low. He could incresae the D3 from 1000/d to 2000/d. Thx documented in this encounter Plan of Treatment Not on filedocumented as of this encounter Visit Diagnoses Not on filedocumented in this encounter Care Teams Pharmacy Associate Relationship Specialty Start Date End Date Vivien Knox DO PCP - General Family Medicine 01/08/22 [address] [place] [address] documented as of this encounter
--- OUTSIDE RECORDS SUMMARY | 2022-06-30 18:48 | XMS_ITS | Encounter Summary ---
:1945 Author Organization [facility] Address [address] [place] [address] Care Team Providers Name Role Phone Vivien Knox Primary Care Provider Unavailable Encounter Details Date Type Department Care Team Description 01/20/2022 Orders Only [facility] Carlos Lutz MD Stage 3a chronic [place] [address] kidney disease (HCC) [address] [place] [address] [phone] Social History Tobacco Use Types Packs/Day Years [...] encounter Progress Notes Harsh Lutz MD - 01/20/2022 11:59 PM CDT Please call the patient regarding labs. His Vit D is a little low. He could incresae the D3 from 1000/d to 2000/d. Thx documented in this encounter Plan of Treatment Not on filedocumented as of this encounter Procedures Procedure Name Priority Date/Time Associated Diagnosis Comme nts PROTEIN / CREATININE Routine 01/17/2022 Stage 3a chronic Res ults for this RATIO, URINE kidney disease (HCC) procedu re are in the results section . VITAMIN D 25 HYDROXY Routine 01/17/2022 Stage 3a chronic Res ults for this kidney disease (HCC) procedu re are in the results section . URINALYSIS WITH Routine 01/17/2022 Stage 3a chronic Results for this MICROSCOPIC kidney disease (HCC) procedu re are in the results section . HEMOGLOBIN Routine 01/17/2022 Stage 3a chronic Results for this kidney disease (HCC) procedu re are in the results section . PTH, INTACT Routine 01/17/2022 Stage 3a chronic Results for this kidney disease (HCC) procedu re are in the results section . RENAL FUNCTION PANEL Routine 01/17/2022 Stage 3a chronic Res ults for this kidney disease (HCC) procedu re are in the results section . LIPID PANEL Routine 01/17/2022 Stage 3a chronic Results for this kidney disease (HCC) procedu re are in the results section . documented in this encounter Results (ABNORMAL) Lipid panel (01/17/2022) Patholo gist Method Time Signature Cholesterol, Total 207 [...] MD LAB BLOOD ORDERABLES Performing Organization Address City/State/ZIP Code Phon e Number [facility] (ABNORMAL) Vitamin D 25 Hydroxy (01/17/2022) P athologist Signature Vitamin D, 28.8 (L) ng/mL [facility] 25-OH, Total Specimen (Source) Anatomical Location Collection Method / Collectio n Time Received Time / Laterality Volume Blood (Blood, 01/17/2022 Venous) Harsh Lutz MD LAB BLOOD ORDERABLES Performing Organization Address [facility] Phon e Number [facility] Urinalysis with microscopic (01/17/2022) P athologist Signature Color, Urine Yellow [facility] Clarity, Urine Clear [facility] Urine Specific 1.025 [facility] [place] pH Urine 5.5 [facility] Leukocyte Negative [facility] [...] MD LAB URINE ORDERABLES Performing Organization Address [facility] Phon e Number [place] Protein, Total, Random Urine w/Creatinine (Protein/Creat Ratio) (01/17/2022) P athologist Signature Creatinine, 189.9 mg/dL [facility] Urine Random Urine 0.1 mg/g creat [facility] Protein/Creatin ine Ratio Protein Urine 12 [facility] Random Specimen (Source) Anatomical Location Collection Method / Collectio n Time Received Time / Laterality Volume Urine (Urine, 01/17/2022 Clean Catch) Harsh Lutz MD LAB URINE ORDERABLES Performing Organization Address [facility] Phon e Number [place] PTH, Intact (01/17/2022) P athologist Signature Parathyroid 52.4 pg/mL [facility] Hormone, Intact Specimen (Source) Anatomical Location Collection Method / Collectio n Time Received Time / Laterality Volume Blood (Blood, 01/17/2022 Venous) Harsh Lutz MD LAB BLOOD ORDERABLES Performing Organization Address [facility] Phon e Number [facility] Hemoglobin (01/17/2022) P athologist Signature Hemoglobin 16.1 g/dL [facility] Specimen (Source) Anatomical Location Collection Method / Collectio n Time Received Time / Laterality Volume Blood (Blood, 01/17/2022 Venous) Harsh Lutz MD LAB BLOOD ORDERABLES Performing Organization Address City/State/ZIP Code Phon e Number [place] (ABNORMAL) Renal Function Panel (01/17/2022) Analysis Per[facility] Time Signature Glucose 97 mg/dL [facility] BUN [...] MD LAB BLOOD ORDERABLES Performing Organization Address City/State/ZIP Code Phon e Number [place] documented in this encounter Visit Diagnoses Diagnosis Stage 3a chronic kidney disease (HCC) documented in this encounter Care Teams Motorcycle Mechanic Relationship Specialty Start Date End Date Vivien Knox DO PCP - General Family Medicine 01/08/22 [address] [place] [address] documented as of this encounter
--- OUTSIDE RECORDS SUMMARY | 2022-06-30 18:48 | XMS_ITS | Encounter Summary ---
:1945 Author Organization [facility] Address [address] [place] [address] Care Team Providers Name Role Phone Caitlin Ferrera MD Primary Care Provider Encounter Details Date Type Department Care Team Description 01/02/2022 Documentation Only [facility] Caitlin Ferrera MD [place] [address] [place] [address] [address] [place] [address] Social History Tobacco Use Types Packs/Day Years Used Date Smoking Tobacco: Never Assessed Sex Assigned at Date Recorded Not on file documented as of this encounter Plan of Treatment Not on filedocumented as of this encounter Visit Diagnoses Not on filedocumented in this encounter Care Teams Senior Investment Analyst Relationship Specialty Start Date End Date Caitlin Ferrera MD PCP - General Family Medicine 01/02/22 01/07/[address] [place] [address] [address] documented as of this encounter
--- OUTSIDE RECORDS SUMMARY | 2022-06-30 18:48 | XMS_ITS | Encounter Summary ---
:1945 Author Reason for Visit Prostate Cancer Assessment and Plan 1. Carcinoma of prostate 1. Prostate cancer - cT1c - [place] 3+3 = 6 - (dx - 07/24/21) - Prostate MRI (06/26/21) - 71 gm - no l esions - currently on expectant management - PSA decreased (5.86) - we discussed options - treatment or mo nitor - check Prostate MRI - will need biopsy if suspicious lesion is seen - Follow-up in 3 months with PSA (at [facility]) ? MRI, prostate, w/wo contrast ? PSA, total, serum or plasma 2. Nocturia H/O Nocturia - on Prostate supplement - bladder has emptied well - consider trying Flomax 0.4 mg daily (a fter evening meal) if urinary symptoms worsen (need to watch for light-headedness) - has a Rx Discussion Note: None recorded.Patient educational handouts: No information available. Plan of Care Reminders Provider Appointments Established 10 09/23/2022 Nicolas augustin MD 9:50AM Lab PSA, Total, Serum or 06/23/2022 [facility] No [facility] Lab Plasma Referral None recorded. ? ? Procedures None recorded. ? ? Surgeries None recorded. ? ? Imaging MRI, Prostate, W/wo 06/23/2022 [facility] Contrast Imaging- Bv Medications Name Start Date ? ? levothyroxine 125 mcg tablet ? Multi Vitamin ? Medications Administered None recorded. Vitals Height Weight BMI 6 ft 3 in 220 lbs 27.5 kg/m2 Results Lab Results None recorded. Allergies Code Code System Name Reaction Severity Onset NKDA ? ? ? Problems No Known Problems Procedures Date Name Performed by ? 12/25/2016 Colonoscopy Information not avai lable Notes: pt estimated date ? Thyroidectomy Information not avai lable 06/23/2022 MRI, Prostate, W/wo Contrast [facility] [address] [place] [address] (Work Place) Vaccine List Vaccine Type COVID-19, mRNA, LNP-S, [...] 06/21/2007 Tdap 07/09/2011 zoster recombinant 06/23/2020 08/31/2020 Social History Tobacco Smoking Status Never Smoker What was the date of your most recent tobacco screening? 06/2022 What is your level of alcohol consumption? None Do you or have you ever used any other forms of tobacco or n icotine? N What is your level of caffeine consumption? Moderate Do you use any illicit or recreational drugs? N Family History Relation Problem Onset Age of Age Notes Father No current problems or (No Information) N/A ( No Notes) disability Mother No current problems or (No Information) N/A ( No Notes) disability Functional Status Unknown. Past Encounters 06/23/2022 Carcinoma of Prostate; Nocturia Nicolas Garrick Reid MD: [address] [place] [place] [address], Ph. History of Present Illness Note: <div>76 yo male dx July 2021 with Prostate cancer - cT1c - [place] 3+3 = 6 (on expectant management) - history of elevate PSA (5.05) during annual exam. No family H/O prostate cancer. He is on Saw [place].</div><div> </div><div>TRUS bx (07/24/21) - 69.4 gm - Prostate cancer - cT1c - [place] 3+3 = 6 </div><div>- Left - [place] 3+3 = 6 - involving 1/6 cores (< 5%) </div><div>- Right - MUNIR</div><div>
</div><div>12/25/21 - He presents for follow-up on Prostate cancer. He reports no change in urination. He voids every 2-3 hours during the day or 1-3x/night. He denies dysuria.</div><div><br& gt;</div><div>06/23/22 - He presents for follow-up on Prostate cancer. He notes no change in urination. He voids every 2-3 hours during the day and 1-3x/night.</div><div>- PSA -5.86 (06/12/22)</div><div> </div><div>PSA - 2.86 (05/21/06) </div><div>- 3.35 (06/21/07) </div><div>- 3.31 (08/31/08) </div><div>- 3.50 (08/30/09) </div><div>- 3.47 (01/06/11) </div><div>- 5.05 (12/01/18) </div><div>- 4.75 (03/30/19) </div><div>- 5.08 (06/08/19) </div><div>- 5.44 (04/20/20) </div><div>- 5.07 (07/24/20) </div><div>- 6.02 (02/28/21) </div><div>- 6.18 (06/17/21)</div><div>- 6.63 (12/09/21)</div><div>- 6.94 (02/25/22)</div><div>- 5.86 (06/11/22)</div><div>
</div><div>Prostate MRI (06/26/21) - 71 gm - no suspicious lesions</div> Review of Systems ? Comprehensive General Adult ROS Reported By: Patient Constitutional: Constitutional: no fever, no chills Eyes: Eyes: no dry eyes, no vision change, no irritation Endocrine: Endocrine: no fatigue, no in creased thirst Cardiovascular: Cardiovascular: no chest tony n, no palpitations Integumentary: Skin: no rashes, no change i n skin color Respiratory: Respiratory: no wheezing, no cough, no shortness of breath Gastrointestinal: Gastrointestinal: no abdomin al pain, no nausea, no vomiting, no constipation, no GERD Musculoskeletal: Musculoskeletal: no neck tony n, no back pain Neurologic: Neurologic: no tremor, no di zziness, no numbness, no headaches Genitourinary: Genitourinary: no incontinen ce, no difficulty urinating ENMT: Ears: no ear pain. Mouth/Thr oat: no sore throat Allergic/Immunologic: Allergy/Immunologic: no itch ing, no hives Hematologic/Lymphatic: Hematologic/Lymphatic no swo llen glands, no excessive bleeding Psychiatric: Psych: no hallucinations, (n ormal) sleep disturbances: mismatch of sleep / wake rosario edule with lifestyle needs Physical Exam ? Urology Male Reported By: Patient Constitutional: General Appearance: healthy- appearing, overweight. Level of Distress: no acute distress Abdomen: Inspection and Palpation: so ft, no tenderness, no masses, no CVA tenderness Skin: General Appearance of extrem ities: no edema. Inspection and palpation: normal temperatur e, no rash, no lesions
--- OUTSIDE RECORDS SUMMARY | 2022-06-30 18:48 | XMS_ITS | Encounter Summary ---
:1945 Author Organization [facility] Address [address] [place] [address] Care Team Providers Name Role Phone Vivien Knox DO Primary Care Provider Unavailable Reason for Referral Consultation (Routine) - Closed Specialty Diagnoses / Procedures Referred By Contact Refer red To Contact Nephrology Diagnoses Stage 3a chronic kidney disease (HCC) [facility] [address] [place] [address] [address] [place] [address] Phone: Fax: Referral ID Status Reason Start Date Expiration Date Visits V isits Requested Authorized [id number] Closed Consult and 01/02/2022 01/02/2023 1 1 Treat Encounter Details Date Type Department Care Team Description 01/02/2022 Transcribe Orders [facility] Knox i, DO Stage 3a chronic Of [place] [address] kidney disease [address] [place], [place] (HCC) ( Primary Dx) [facility] [address] [address] [place] [address] Social History Tobacco Use Types Packs/Day Years Used Date Smoking Tobacco: Never Assessed Sex Assigned at Date Recorded Not on file COVID-19 Exposure Response Date Recorded In the last month, have you been in contact with No / Unsure 01/15/2022 12:58 PM EDT someone who was confirmed or suspected to have Coronavirus / COVID-19? documented as of this encounter Plan of Treatment Scheduled Referrals Name Type Priority Associated Order Schedule Diagnoses Ambulatory referral Outpatient Referral Routine Stage 3a chron ic Expected: to Nephrology kidney disease 01/02/2022, (HCC) Expires: 02/01/2023 documented as of this encounter Visit Diagnoses Diagnosis Stage 3a chronic kidney disease (HCC) - Primary documented in this encounter Care Teams Grid Trimmer Relationship Specialty Start Date End Date Vivien Knox DO PCP - General Family Medicine 01/08/22 [address] [place] [address] documented as of this encounter
--- OUTSIDE RECORDS SUMMARY | 2022-06-30 18:48 | XMS_ITS | Encounter Summary ---
:1945 Author Organization [facility] Address [address] [place] [address] Care Team Providers Name Role Phone Caitlin Ferrera MD Primary Care Provider Encounter Details Date Type Department Care Team Description 12/09/2021 Documentation Only [facility] Caitlin Ferrera MD [place] [address] [place] [address] [address] [place] [address] Social History Tobacco Use Types Packs/Day Years Used Date Smoking Tobacco: Never Assessed Sex Assigned at Date Recorded Not on file documented as of this encounter Plan of Treatment Not on filedocumented as of this encounter Visit Diagnoses Not on filedocumented in this encounter Care Teams Biller Relationship Specialty Start Date End Date Caitlin Ferrera MD PCP - General Family Medicine 01/02/22 01/07/[address] [place] [address] [address] documented as of this encounter
--- OUTSIDE RECORDS SUMMARY | 2022-06-30 18:48 | XMS_ITS | Encounter Summary ---
:1945 Author Organization [facility] Address [address] [place] [address] Care Team Providers Name Role Phone Vivien Knox DO Primary Care Provider Unavailable Encounter Details Date Type Department Care Team Description 02/11/2022 Telephone [facility] Corinne Martinez RN [address] [place], [place] [phone] [facility] [address] [place] [address] (Wo rk) Social History Tobacco [...] Telephone Encounter - Corinne Roberts RN - 02/13/2022 9:16 AM CDT Pt notified and voiced understanding. Telephone Encounter - Corinne Roberts RN - 02/12/2022 10:06 AM CDT Left a voicemail for patient to call the office back. Telephone Encounter - Corinne Roberts RN - 02/11/2022 9:43 AM CDT ----- Message from Harsh Lutz MD sent at 02/08/2022 4:43 PM CDT ----- Please call the patient regarding U/S. Normal, no concerns JPG documented in this encounter Plan of Treatment Not on filedocumented as of this encounter Visit Diagnoses Not on filedocumented in this encounter Care Teams Information Technology Officer Relationship Specialty Start Date End Date Vivien Knox DO PCP - General Family Medicine 01/08/22 [address] [place] [address] documented as of this encounter
--- OUTSIDE RECORDS SUMMARY | 2022-06-30 18:48 | XMS_ITS | Encounter Summary ---
:1945 Author Organization [facility] Address [address] [place] [address] Care Team Providers Name Role Phone Caitlin Ferrera MD Primary Care Provider Encounter Details Date Type Department Care Team Description 01/02/2022 Orders Only [facility] [place] Stage 3a chronic kidney [address] disease (HCC) [place], [place] [phone] Social History Tobacco Use Types Packs/Day Years Used Date Smoking Tobacco: Never Assessed Sex Assigned at Date Recorded Not on file documented as of this encounter Plan of Treatment Not on filedocumented as of this encounter Visit Diagnoses Diagnosis Stage 3a chronic kidney disease (HCC) documented in this encounter Care Teams Test Technician Relationship Specialty Start Date End Date Caitlin Ferrera MD PCP - General Family Medicine 01/02/22 01/07/[address] [place] [address] documented as of this encounter
--- OUTSIDE RECORDS SUMMARY | 2022-06-30 18:48 | XMS_ITS | Encounter Summary ---
:1945 Author Organization [facility] Address [address] [place] [address] Care Team Providers Name Role Phone Vivien Knox DO Primary Care Provider Unavailable Encounter Details Date Type Department Care Team Description 01/16/2022 Telephone [facility] Kayli Lewis [address] [place] [address] [address] [place], [place] [address] (Wo rk) Social History Tobacco Use Types [...] this encounter Miscellaneous Notes Telephone Encounter - Kayli Lewis - 01/16/2022 11:03 AM CDT Called pt to get information on when he would be having his fasting labs completed. Spoke to pt , Melisa, getting lab information, dates and times that would work for US Renal to be done. Scheduled US Renal at [facility], [address] [address] . Called pt back, once again speaking to pt Melisa and provided her with appointment date and instructions. Scheduled 01/29/22 with a 12:45 arrival for a 1 pm appointment. NPO 4 hours prior, then last hour drinking 28-32 ounces of water,not voiding until after the 45 min exam. Voiced understanding. documented in this encounter Plan of Treatment Not on filedocumented as of this encounter Visit Diagnoses Not on filedocumented in this encounter Care Teams Corrugated Box Machine Operator Relationship Specialty Start Date End Date Vivien Knox DO PCP - General Family Medicine 01/08/22 [address] [place] [address] documented as of this encounter
--- OUTSIDE RECORDS SUMMARY | 2022-06-30 18:48 | XMS_ITS | Clinical Summary ---
:1945 Author Organization [facility] Address [address] [place] [address] Phone Care Team Providers Name Role Phone Vivien Knox DO Primary Care Provider Unavailable Allergies No known active allergies Medications Medication Sig Dispensed Refills Start Date End Date Status ascorbic acid (VITAMIN Take 1 tablet by 0 08/31/2015 Active C) 1000 MG tablet mouth 1 (one) time each day cholecalciferol (VITAMIN Take 2 capsules by mouth 1 (one) time each day 0 08/21/2014 Active D-3) 25 MCG (1000 UT) capsule coenzyme Q-10 100 MG Take 1 capsule 0 06/30/2016 Active capsule by mouth 1 (one) time each day levothyroxine Take 1 tablet by 0 12/11/2021 Active (SYNTHROID, LEVOTHROID) mouth 1 (one) 125 MCG tablet time each day Melatonin 5 MG chewable Chew 1 tablet if 0 8 Active tablet needed Red Yeast Rice Extract Take 2 tablets 0 06/19/2016 Active 600 MG tablet by mouth 1 (one) time each day sildenafil (VIAGRA) 50 Take 50 mg by 0 08/31/2021 Active MG tablet mouth if needed tamsulosin (FLOMAX) 0.4 Take 0.4 mg by 0 06/24/2021 Active MG 24 hr capsule mouth 1 (one) time daily 30 minutes after same meal B COMPLEX VITAMINS PO Take 1 tablet by 0 07/17/2020 Active mouth 1 (one) time each day Turmeric 500 MG tablet Take 1 capsule 0 09/05/2016 Active by mouth 1 (one) time each day Saw [place] 450 MG Take 1 capsule 0 08/27/2020 Active capsule by mouth 1 (one) time each day Multiple Vitamin Take 1 tablet by 0 12/27/2008 Active (MULTIVITAMIN ADULT PO) mouth 1 (one) time each day with food fish oil-omega-3 fatty Take 1 capsule 0 12/27/2008 Active acids 1000 MG capsule by mouth in the morning and 1 capsule in the evening. Probiotic Product Take 1 capsule 0 02/01/2019 Active (PROBIOTIC BLEND PO) by mouth 1 (one) time each day Active Problems Problem Noted Date Mixed hyperlipidemia 02/23/2012 Family History Medical History Relation Comments Heart disease Father Heart disease Mother Relation Status Comments Father Father's Brother Father's Sister Maternal Grandfather Maternal Grandmother Mother Mother's Brother Mother's Sister Paternal Grandfather Paternal Grandmother Social History Tobacco Use Types Packs/Day Years [...] Assigned at Date Recorded Not on file Last Filed Vital Signs Vital Sign Reading [...] Mass Index 28.38 01/15/2022 1:20 PM CDT Plan of Treatment Health Maintenance Due Date Last Done Comments Colorectal Cancer Screenin1995 Annual FOBT Colorectal Cancer Screenin1995 Colonoscopy Colorectal Cancer Screenin1995 Sigmoidoscopy Influenza Vaccine (#1) 2022 06/24/2021, 06/05/2020, 06/28/2019, Additional history exists Hepatitis B Vaccine Aged Out 02/23/2012, 07/09/2011 No lo nger eligible based on patient 's age to complete this topic Pneumococcal Vaccine: 65+ Completed 08/21/2014, 02/23/2012 Years Insurance Payer Benefit Plan Subscriber ID Effective Dates Phone Address Type / Group BCBS [place] BCBS [facility] [id number] 2015[address] [phone] [address] [address] MEDICARE ADV ([id number]) t 20 [phone] Care Teams Inspector Plating Relationship Specialty Start Date End Date Vivien Knox DO PCP - General Family Medicine 01/08/22 [address] [place] [address]
--- OUTSIDE RECORDS SUMMARY | 2022-06-30 18:48 | XMS_ITS | Encounter Summary ---
:1945 Author Organization [facility] Address [address] [place] [address] Care Team Providers Name Role Phone Caitlin Ferrera MD Primary Care Provider Encounter Details Date Type Department Care Team Description 01/06/2022 Office Communication [facility] [place] [address] [place], [place] [address] [place] [phone] Social History Tobacco Use Types Packs/Day Years Used Date Smoking Tobacco: Never Assessed Sex Assigned at Date Recorded Not on file documented as of this encounter Miscellaneous Notes Telephone Encounter - Micheal Auguste - 01/06/2022 2:03 PM CDT Patient scheduled 03/14 documented in this encounter Plan of Treatment Not on filedocumented as of this encounter Visit Diagnoses Not on filedocumented in this encounter Care Teams Brush Clearer Surveying Relationship Specialty Start Date End Date Caitlin Ferrera MD PCP - General Family Medicine 01/02/22 01/07/22 [address] [place] [address] documented as of this encounter
--- OUTSIDE RECORDS SUMMARY | 2022-06-30 18:48 | XMS_ITS | Encounter Summary ---
:1945 Author Organization [facility] Address [address] [place] [id number] Care Team Providers Name Role Phone Vivien Knox DO Primary Care Provider Unavailable Encounter Details Date Type Department Care Team Description 01/15/2022 Travel Social History Tobacco Use Types Packs/Day Years [...] on filedocumented in this encounter Care Teams Supervisor Grinding Relationship Specialty Start Date End Date Vivien Knox DO PCP - General Family Medicine 01/08/[address] [place] [address] documented as of this encounter
--- OUTSIDE RECORDS SUMMARY | 2022-06-30 18:49 | XMS_ITS | Clinical Summary ---
:1945 Author Organization [facility] [place] [address] Care Team Providers Name Role Phone Melonie Spears Susanna Unavailable [phone] Ja Bazan MD Unavailable Caitlin Ferrera MD Primary Care Provider Allergies No known active allergies Medications Medication Sig Dispensed Refills Start Date End Date Status MULTIVITAMIN TAB take 1 tablet by 0 12/27/2008 Active oral route once daily with food FISH OIL 1,000 MG CAP one to two daily 0 12/27/2008 Active cholecalciferol Take 1 capsule 0 08/21/2014 Active (VITAMIN D) 1,000 unit by mouth once capsule daily. ascorbic acid (VITAMIN Take 1 tablet by 0 08/31/2015 Active C) 1,000 mg tablet mouth once daily. red yeast rice 600 mg Take by mouth. 0 06/19/2016 Active tab Takes 2 tablets daily. coenzyme q10 (CO Q-10) Take 1 capsule 0 06/30/2016 Active 100 mg cap by mouth once daily. turmeric-turmeric root Take by mouth. 0 09/05/2016 Active extract 450-50 mg cap melatonin 5 mg chew Take by mouth. 0 12/25/2017 Active B.breve-L.acid-L.rham-S Take by mouth. 0 02/01/2019 Active .thermo (PROBIOTIC) 3 billion cell chew vitamin B complex Take 1 tablet by 0 07/17/2020 Active (B-COMPLEX VITAMIN) mouth once tablet daily. [place] Fruit 450 Take by mouth 2 0 08/27/2020 Active mg capsule times daily. tamsulosin (FLOMAX) 0.4 Take 1 Capsule 30 Capsule 11 06/24/2021 Active mg capsuleIndications: (0.4 mg) by Benign prostatic mouth once daily hyperplasia with after a meal. nocturia sildenafil citrate Take 1 Tablet 10 tablet. 11 08/31/2021 Active (VIAGRA) 50 mg (50 mg) by mouth tabletIndications: ED once daily if (erectile dysfunction) needed for of organic origin Erectile Dysfunction. Take 30min to 4 hours before sexual activity. Max 100mg/24hr levothyroxine TAKE ONE TABLET 90 Tablet 2 02/26/2022 Active (SYNTHROID) 125 mcg BY MOUTH ONE tabletIndications: TIME DAILY. BEST Multinodular goiter IF TAKEN ON EMPTY STOMACH Active Problems Problem Noted Date Prostate cancer 12/09/2021 Adenomatous colon polyp 12/29/2018 Overview: Colonoscopy 12/2018 polyp, repeat in 5 ye ars Multinodular goiter 08/31/2015 Overview: Multinodular Goiter ( right 3.4, left 5. 2): Benign, increasing in size. Diagnosis: 2013 Last FNA (10-14-16): Benign right and le ft nodules. Last US (09-11-16): Right 3.4, left 5.2 , increased in size c/w previous ('14). (09-05-16): TSH 0.60 Symptoms: no compressive symptoms. Options: monitoring vs surgical excisio n. Given benign findings per fna, a repeat fna is unlikely to be useful. Note: given current nodular size and in creasing trend over the past several years, surgical excision is not unreasonable. This was discussed with the Patient. The pateint expresses his preference fo r monitoring at present. Plan: monitoring of goiter, with consid eration of surgical excision as needed if there is ongoing increases in nodular size and/or compressive symptoms develop. A) www.thyroid.org B) next US: 2019, sooner as needed comp ressive symptoms. Mixed hyperlipidemia 02/23/2012 Screen for colon cancer 09/04/2009 Overview: Colonoscopy 08/2009 normal repeat in 10 years Sensorineural hearing loss, bilateral 09/03/2007 Goiter Encounters Date Type Specialty Care Team Description 06/30/2022 Travel 06/30/2022 Nurse Triage Caitlin Ferrera MD Abdom inal Pain 06/23/2022 Orders Only Caitlin Ferrera MD Outsi de Order (Dr Nicolas Reid) 06/11/2022 Orders Only Lab, [facility] 06/11/2022 Travel from Last 3 Months Immunizations Name Administration Dates Next Due AMB INFLUENZA IIV3 (AGE 65+ YRS) PF 07/13/2018 (Flu Clinic Only) COVID-19 vaccine (Moderna 11/30/2020, 11/02/2020 100mcg/0.5mL) PF, MDV HepA-HepB (Twinrix) 02/23/2012, 07/09/2011 Influenza, High-dose Inactivated 06/19/2016, 08/31/2015, 04/2014 Influenza, IIV3 (Age 6-35 mos) 07/09/2011 Influenza, IIV3 (Age >=3 years) 08/08/2013, 07/09/2011, 06/15, 08/23/2008, 06/21/2007, 09/05/2006 Influenza, Inactivated AIIV4 (Age 65+ 06/24/2021, 06/05/2020 Years) Preserv Free Influenza, Inactivated IIV3 (Age 65+ 06/28/2019, 09/08/2017 Years) Preserv Free Pneumococcal Poly,23-Valent 02/23/2012 (Pneumovax) Pneumococcal conj 13-Valent (Prevnar 08/21/2014 13) Td, Preservative Free (age >= 7 06/21/2007 Years) Tdap 07/09/2011 Zoster (Shingrix-RZV, recombinant) 08/31/2020, 06/23/2020 Zoster (Zostavax-ZVL, live) 09/14/2012 Family History Medical History Relation Name Comments Other Father emphysema Heart Disease Mother Relation Name Status Comments Father Mother Social History Tobacco Use Types Packs/Day Years Used Date Never Smoker 15 Smokeless Tobacco: Never Used Tobacco Cessation: Counseling Given: Yes Comments: never Alcohol Use Standard Drinks/Week Comments Yes 5 (1 standard drink = 0.6 oz pure alcoho l) Very occassional Alcohol Habits Answer Date Recorded How often do you have a drink containing alcohol? Monthly or less 12/01/2018 How many drinks containing alcohol do you have on a 1 or 2 12/01/2018 typical day when you are drinking? How often do you have six or more drinks on one Never 12/01/2018 occasion? Comment: Very occassional 09/05/2016 Sex Assigned at Date Recorded Not on file COVID-19 Exposure Response Date Recorded In the last 10 days, have you been in contact with No / Unsu re 06/30/2022 2:19 PM CDT someone who was confirmed or suspected to have Coronavirus/COVID-19? Obstetrics History Last Filed Vital Signs Vital Sign Reading Time Taken Comments Blood Pressure 131/84 03/05/2022 1:47 PM CDT Pulse 82 03/05/2022 1:47 PM CDT Temperature 37.1 ??C (98.8 ??F) 02/28/2021 4:36 PM CDT Respiratory Rate 16 07/04/2019 10:23 AM CDT Oxygen Saturation 97% 03/05/2022 1:47 PM CDT Inhaled Oxygen Concentration - - Weight 103.6 kg (228 lb 4.8 oz) 03/05/2022 1:47 PM CDT Height 189.5 cm (6' 2.61) 12/09/2021 9:40 AM CDT Body Mass Index 28.84 12/09/2021 9:40 AM CDT Plan of Treatment Health Maintenance Due Date Last Done Comments Tetanus booster 07/09/2021 07/09/2011, 06/21/2007 COVID-19 vaccine series (4 - 09/26/2021 08/01/2021, 021, Booster for Moderna series) 11/02/2020 Influenza for age 65+ 05/15/2022 06/24/2021, 06/05/2020, 06/28/2019, Additional history exists BMI (ht and wt on same day) for 12/09/2022 12/09/2021, 11/0 11/2019, age 18+ 06/22/2020, Additional history exists Medicare Wellness for age 65+ 12/09/2022 12/09/2021, 2019, 12/01/2018, Additional history exists Depression screening for age 12+ 12/10/2022 12/10/2021, , 12/09/2021, Additional history exists Colonoscopy through age 75 12/29/2023 12/28/2018, 9, 09/04/2009, Additional history exists Lipids for age 45-75 01/17/2027 01/17/2022, 06/22/2020, 12/01/2018, Additional history exists Tdap Completed 07/09/2011 Pneumococcal series for age 65+ Completed 08/21/2014, 02/12 Zoster (shingles) series for age Completed 08/31/2020, 06/2020, 50+ 09/14/2012 Hepatitis C screening for age Completed 12/09/2021 18-79 Procedures Procedure Name Priority Date/Time Associated Diagnosis Comme nts PSA TOTAL Routine 06/11/2022 9:07 AM Prostate cancer (HC) R esults for this (DIAGNOSTIC) CDT procedure are i n the results section. from Last 3 Months Results (ABNORMAL) PSA TOTAL (DIAGNOSTIC) (06/11/2022 9:07 AM CDT) Analysis Performed At Patho logist Time Signature PSA TOTAL 5.86 (H) <4.00 06/11/2022 [employer] (DIAGNOSTIC) ng/mL 7:03 PM CDT LAB[facility]ATORY[facility] Specimen Anatomical Collection Method / Collection Time Recei maria elena Time (Source) Location / Volume Laterality Blood BLOOD SPECIMEN / Venipuncture / 06/11/2022 9:07 2021 9:08 Unknown Unknown AM CDT AM CDT Narrative [facility] - 06/11/2022 7:03 PM CDT The percentage of Free PSA can be used to enhance the differentiation of prostate cancer from benign prostatic disease in subjects whose PSA levels are between 4.00 and 10.00 ng/mL. The % Free PSA will be reported only for PSA values between 4.00 and 10.00 ng/mL. The [facility] Worker PSA assay is a Chem iluminescent Microparticle Immunoassay(CMIA). Assay values obtained with different assay methods cannot be used interchangeably due to differences in assay method s and reagent specificity. ? Ernst Figueroa MD CHEMISTRY Performing Organization Address City/State/ZIP Code Phon e Number [facility] [address] [place] [address] [facility] LABORATORY from Last 3 Months Insurance Payer Benefit Plan / Subscriber ID Effective Dates Phone Addre ss Type Group MEDICARE PART A MEDICARE PART A [id number] 2016-Presen ATTN: CLAIMS - HB USE ONLY HB ONLY t [address] [place] [address] MEDICARE PART B MEDICARE PART B [id number] 2011-Presen ATTN: CLAIMS - HB USE ONLY HB ONLY t [address] [place] [address] [place] BL[place] [id number] 2016-Presen [address] [address] [address] [place] [id number] [employer] [place]OSS BL[employer] [place] [id number] 2016-[place]en [address] [address] [address] [place], [place] [id number] Advance Directives Documents on File Type Date Recorded 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
[2022-06-30 18:59] LABS: Albumin* 4.6 g/dL (3.3-5.0); Chloride* 101 mmol/L (96-114)
[2022-06-30 19:00] LABS: Potassium* 4.5 mmol/L (3.6-5.1); Sodium* 134 mmol/L (135-149)
[2022-06-30] MEDS: 0.9 % SODIUM CHLORIDE 500 ML 500 ML IV (19:00)
[2022-06-30 19:01] VITALS: BP 132/90; PULSE 77; O2SAT 98
[2022-06-30 19:02] LABS: Alkaline Phosphatase* 69 U/L (40-150); Aspartate Amino Transferase* 33 U/L (12-35); Bilirubin Direct* 0.1 mg/dL (0.0-0.5); Bilirubin Total* 0.7 mg/dL (0.1-1.5); Carbon Dioxide* 24 mmol/L (20-32); Creatinine* 1.6 mg/dL (0.5-1.5); Est. Creatinine Clearance* 46.38; Estimated Glomerular Filt Rate 45 ml/min; Total Protein* 7.5 g/dL (6.0-8.3)
[2022-06-30 19:03] LABS: Alanine Aminotransferase* 26 U/L (4-50); Blood Urea Nitrogen* 22 mg/dL (7-30); Calcium* 8.8 mg/dL (8.4-10.6); Glucose* 137 mg/dL (60-115); Lipase* 60 U/L (23-300)
[2022-06-30 19:05] LABS: C Reactive Protein* 2.5 mg/dL (0.5-1.0)
[2022-06-30 19:41] VITALS: BP 132/90; PULSE 77; RESP 18; TEMP 36.6
== END 2022-06-30 19:43 | disposition home or self-care (01) ==
PROVIDERS: Emergency Provider Family Medicine; PCP Student in an Organized Health Care Education/Training Program
DX: N13.2 Hydronephrosis with renal and ureteral calculous obstruction (principal)
CPT/HCPCS: 36415; 74176; 80048; 80076; 81001; 83690; 85025; 86140; 96360; 99284; J7120